=== PATIENT | male | born 1950 | race Caucasian/White ===

== ENCOUNTER 2022-02-09 21:16 | Emergency (ER) | payer MEDICAID, OTHER ==
[~2022-02-09] VITALS: Ht 167.6 cm; Wt 74.8 kg
[2022-02-09 21:19] VITALS: BP 123/77
--- NOTE | 2022-02-09 21:19 | NUR ---
PT [facility]. TAKEN TO BED 7
--- NOTE | 2022-02-09 21:30 | NUR ---
Patient being evaluated by physician at bedside.
--- NOTE | 2022-02-09 22:10 | NUR ---
Dr. Palacios examining patient.
--- NOTE | 2022-02-09 22:33 | NUR ---
X-Ray at bedside.
--- NOTE | 2022-02-10 01:30 | NUR ---
ATTEMPTED TO CALL FOR RIDE FROM [facility]. UNABLE TO PICK PT UP UNTIL AM. PT AWARE.
--- NOTE | 2022-02-10 03:30 | NUR ---
PT RESTING, NO S/S OF DISTRESS NOTED. AWAITING RIDE HOME. WILL CONTINUE TO MONITOR.
--- NOTE | 2022-02-10 04:36 | NUR ---
CHANGED SOILED BRIEF AT THIS TIME. PT TOLERATED WELL. PT IN POSITION OF COMFORT. AWAITING RIDE HOME. PT REQUESTING PAIN MEDICATION FOR HIS ABDOMINAL PAIN.
[2022-02-10] MEDS ORDERED: ACETAMINOPHEN 650 MG/20.3 ML UDC PO ONE (04:40)
--- NOTE | 2022-02-10 06:50 | NUR ---
PT AWAKE AND TALKATIVE. AWAITING RIDE HOME.
--- NOTE | 2022-02-10 07:18 | NUR ---
REPORT TO ELLIE
--- NOTE | 2022-02-10 07:20 | NUR ---
Recieved report from [facility] for transfer of care.
--- NOTE | 2022-02-10 07:59 | NUR ---
Spoke Jumana at [facility] regarding patients turkey picker. Per Jumana, turkey picker is still on the way to facility to turkey picker transport vehicle.
--- NOTE | 2022-02-10 09:18 | NUR ---
Patient discharged with v/s stable. Written and verbal after care instructions given and explained. Wheel Chair Assisted (own wheelchair) with caregiver Savanna to car. All questions addressed prior to discharge. Advised to follow up with PMD. copy of imaging given
[2022-02-10 09:19] VITALS: BP 119/59
--- NOTE | 2022-02-10 09:20 | NUR ---
The patient's care was reviewed and supervised by Ivonne Cabrera, RN, RN.
== END 2022-02-10 09:20 | disposition home or self-care (01) ==
LOC: MED 21:16
DX: K94.23 Gastrostomy malfunction (principal)
CPT/HCPCS: 74240; 99285; Q0092